=== PATIENT | female | born 1930 | race Caucasian/White ===

== ENCOUNTER → 2018-07-30 | Outpatient (CLI) | payer MEDICARE, OTHER ==
[2018-07-30 15:58] LABS: CULTURE INDICATED? YES; MICROSCOPIC INDICATED
[2018-07-30 15:58] LABS: ALBUMIN 3.4 g/dL (3.4-5.0); ANION GAP 8 mmol/L (5-15); BASOPHILS # (AUTO) 0.04 x10^3/uL (0-0.1); BASOPHILS % (AUTO) 0 % (0-1); CALCIUM 8.6 mg/dL (8.5-10.1); CHLORIDE 104 mmol/L (98-107); EOSINOPHILS # (AUTO) 0.14 x10^3/uL (0-0.4); EOSINOPHILS % (AUTO) 1 % (1-7); LYMPHOCYTES # (AUTO) 1.89 x10^3/uL (1-3.4); LYMPHOCYTES % (AUTO) 19 % (22-44); MD NO; MEAN CORPUSCULAR HEMOGLOBIN 30.5 pg (27.0-34.8); MEAN CORPUSCULAR HGB CONC 33.1 g/dL (32.4-35.8); MEAN CORPUSCULAR VOLUME 92.2 fL (80-100); MEAN PLATELET VOLUME 7.9 fL (7.4-10.4); MONOCYTES % (AUTO) 14 % (2-9); NEUTROPHILS # (AUTO) 6.33 x10^3/uL (1.8-6.8); NEUTROPHILS % (AUTO) 65 % (42-75); PLATELET COUNT 203 x10^3/uL (130-400); RED BLOOD COUNT 4.53 x10^6/uL (3.82-5.3); RED CELL DISTRIBUTION WIDTH 15.6 % (9.6-15.2)
[2018-07-30 16:01] LABS: ALANINE AMINOTRANSFERASE 19 U/L (12-78); ALKALINE PHOSPHATASE 85 U/L (45-117); BILIRUBIN,TOTAL 1.1 mg/dL (0.2-1.0); CREATININE 1.24 mg/dL (0.55-1.02); TOTAL PROTEIN 7.5 g/dL (6.4-8.2)
== END | disposition home or self-care (01) ==
LOC: CFH 13:48
PROVIDERS: ATTEND Family Medicine
DX: R10.2 Pelvic and perineal pain (principal)
CPT/HCPCS: 36415; 74176; 80053; 81001; 85025; 87086

== ENCOUNTER 2018-12-22 02:18 | Inpatient (IN) | payer MEDICARE, OTHER ==
[~2018-12-22] VITALS: Ht 162.6 cm; Wt 84.7 kg
--- NOTE | 2018-12-22 02:50 | NUR ---
PT PRESENTED WITH C/O LOW BACK PAIN, STATED "I THINK I'M CONSTIPATED." MONITORS APPLIED, SIDERAILS UP X2, CALL LIGHT WITHIN REACH. ERP AT BEDSIDE FOR EVAL
[2018-12-22] MEDS ORDERED: MORPHINE SULFATE 4 MG/ML, 1ML IVPush PRN (03:00)
[2018-12-22] MEDS ORDERED: ONDANSETRON 2MG/ML, 2ML IVPush ONE (03:00)
[2018-12-22] MEDS ORDERED: ONDANSETRON 2MG/ML, 2ML ONE (03:08)
[2018-12-22] MEDS ORDERED: MORPHINE SULFATE 4 MG/ML, 1ML ONE (03:09)
[2018-12-22 03:35] LABS: BASOPHILS # (AUTO) 0.02 x10^3/uL (0-0.1); BASOPHILS % (AUTO) 0 % (0-1); EOSINOPHILS # (AUTO) 0.14 x10^3/uL (0-0.4); EOSINOPHILS % (AUTO) 1 % (1-7); LYMPHOCYTES # (AUTO) 1.02 x10^3/uL (1-3.4); LYMPHOCYTES % (AUTO) 9 % (22-44); MD NO; MEAN CORPUSCULAR HEMOGLOBIN 30.9 pg (27.0-34.8); MEAN CORPUSCULAR HGB CONC 33.6 g/dL (32.4-35.8); MEAN PLATELET VOLUME 6.7 fL (7.4-10.4); MONOCYTES % (AUTO) 9 % (2-9); NEUTROPHILS # (AUTO) 8.79 x10^3/uL (1.8-6.8); NEUTROPHILS % (AUTO) 80 % (42-75); PLATELET COUNT 274 x10^3/uL (130-400); RED BLOOD COUNT 4.48 x10^6/uL (3.82-5.3); RED CELL DISTRIBUTION WIDTH 14.6 % (9.6-15.2)
[2018-12-22 03:46] LABS: ALANINE AMINOTRANSFERASE 16 U/L (12-78); ALBUMIN 3.7 g/dL (3.4-5.0); ANION GAP 9 mmol/L (5-15); CALCIUM 8.4 mg/dL (8.5-10.1); CHLORIDE 92 mmol/L (98-107); CREATININE 1.12 mg/dL (0.55-1.02)
[2018-12-22 03:51] LABS: ALKALINE PHOSPHATASE 109 U/L (45-117); BILIRUBIN,TOTAL 0.9 mg/dL (0.2-1.0); TOTAL PROTEIN 7.6 g/dL (6.4-8.2); TROPONIN I 0.043 ng/mL (0.000-0.045)
--- NOTE | 2018-12-22 04:30 | NUR ---
PT STRAIGHT CATH AND URINE SAMPLE TAKEN TO LAB. ASSISTED PT ONTO BEDPAN PER HER REQUEST.
[2018-12-22 04:42] LABS: CULTURE INDICATED? YES; MICROSCOPIC AUTO
[2018-12-22] MEDS ORDERED: CEFTRIAXONE PMX 1GM/50ML 50 ML IV ONE (05:00)
[2018-12-22] MEDS ORDERED: CEFTRIAXONE PMX 1GM/50ML 50 ML ONE (05:04)
--- NOTE | 2018-12-22 05:12 | NUR ---
PT RESTING ON GURNEY, MONITORS IN PLACE, IV ABX INFUSING, CALL LIGHT WITHIN REACH.
[2018-12-22] MEDS ORDERED: OMNIPAQUE 350 MG/ML, 100ML BOTTLE ONE (05:32)
[2018-12-22] MEDS ORDERED: ESCI20TA PO (05:35)
[2018-12-22] MEDS ORDERED: POTA99TA24 PO (05:35)
[2018-12-22] MEDS ORDERED: LORA10TA62 PO (05:35)
[2018-12-22] MEDS ORDERED: FURO-93 PO (05:35)
[2018-12-22] MEDS ORDERED: NITR0.4T28 SL (05:35)
[2018-12-22] MEDS ORDERED: LEVO112T4 PO (05:35)
[2018-12-22] MEDS ORDERED: ASPI-515 PO (05:35)
--- NOTE | 2018-12-22 05:48 | NUR ---
ASSISTED PT OFF OF BEDPAN, MONITORS IN PLACE, CALL LIGHT WITHIN REACH. AWAITING ROOM FOR TRANSFER
--- NOTE | 2018-12-22 05:58 | NUR ---
ATTEMTED TO CALL REPORT, ZEV RN TO CALL BACK.
--- NOTE | 2018-12-22 06:04 | NUR ---
ASSISTED PT ONTO BEDPAN, DENIES FURTHER NEEDS AT THIS TIME, CALL LIGHT WITHIN REACH
--- NOTE | 2018-12-22 06:10 | NUR ---
2ND CALL PLACED FOR REPORT, NOTIFIED RN WILL CALL ME RIGHT BACK
[2018-12-22 06:50] VITALS: BP 176/74
[2018-12-22] MEDS ORDERED: SODIUM CHLORIDE 0.9% 1,000 ML IV SCH (09:03)
[2018-12-22] MEDS ORDERED: hydrALAzine 20 MG/ML, 1ML IVPush PRN (09:30)
[2018-12-22] MEDS ORDERED: ACETAMINOPHEN 325 MG TABLET PO PRN (09:30)
[2018-12-22] MEDS ORDERED: NITROGLYCERIN 0.4 MG BOTTLE (25 TABS) SL PRN (11:00)
[2018-12-22] MEDS: POTASSIUM GLUCONATE PO SCH ×2 (11:30→21:00)
[2018-12-22] MEDS ORDERED: LIDODERM 5% PATCH TD PRN (12:00)
[2018-12-22] MEDS: FUROSEMIDE 20 MG TABLET PO SCH (12:32)
[2018-12-22] MEDS: LEVOTHYROXINE 112 MCG TABLET PO SCH (12:32)
[2018-12-22] MEDS: ASPIRIN 81 MG TABLET EC PO SCH (12:32)
[2018-12-22] MEDS: ESCITALOPRAM 10MG TABLET PO SCH (12:33)
[2018-12-22] MEDS: POLYETHYLENE GLYCOL 17 GM PACKET PO SCH (12:33)
[2018-12-22 16:25] VITALS: BP 126/75
[2018-12-22 20:07] VITALS: BP 119/65
[2018-12-23 03:00] VITALS: BP 143/63
[2018-12-23 06:23] LABS: BASOPHILS # (AUTO) 0.04 x10^3/uL (0-0.1); BASOPHILS % (AUTO) 1 % (0-1); EOSINOPHILS # (AUTO) 0.13 x10^3/uL (0-0.4); EOSINOPHILS % (AUTO) 2 % (1-7); LYMPHOCYTES # (AUTO) 1.21 x10^3/uL (1-3.4); LYMPHOCYTES % (AUTO) 15 % (22-44); MD NO; MEAN CORPUSCULAR HEMOGLOBIN 31.1 pg (27.0-34.8); MEAN CORPUSCULAR HGB CONC 33.5 g/dL (32.4-35.8); MEAN CORPUSCULAR VOLUME 92.9 fL (80-100); MEAN PLATELET VOLUME 6.6 fL (7.4-10.4); MONOCYTES # (AUTO) 0.92 x10^3/uL (0.2-0.8); MONOCYTES % (AUTO) 11 % (2-9); NEUTROPHILS # (AUTO) 5.92 x10^3/uL (1.8-6.8); NEUTROPHILS % (AUTO) 72 % (42-75); PLATELET COUNT 232 x10^3/uL (130-400); RED BLOOD COUNT 3.78 x10^6/uL (3.82-5.3); RED CELL DISTRIBUTION WIDTH 14.8 % (9.6-15.2)
[2018-12-23 06:31] LABS: ALBUMIN 2.7 g/dL (3.4-5.0); ANION GAP 6 mmol/L (5-15); CHLORIDE 97 mmol/L (98-107)
[2018-12-23 06:35] LABS: ALANINE AMINOTRANSFERASE 18 U/L (12-78); ALKALINE PHOSPHATASE 99 U/L (45-117); BILIRUBIN,TOTAL 0.5 mg/dL (0.2-1.0); CREATININE 1.12 mg/dL (0.55-1.02); TOTAL PROTEIN 6.4 g/dL (6.4-8.2)
[2018-12-23] MEDS: POLYETHYLENE GLYCOL 17 GM PACKET PO SCH (08:52)
[2018-12-23] MEDS: CEFTRIAXONE PMX 1GM/50ML 50 ML IV SCH (08:52)
[2018-12-23] MEDS: LEVOTHYROXINE 112 MCG TABLET PO SCH (08:53)
[2018-12-23] MEDS: FUROSEMIDE 20 MG TABLET PO SCH (08:53)
[2018-12-23] MEDS: ASPIRIN 81 MG TABLET EC PO SCH (08:53)
[2018-12-23] MEDS: ESCITALOPRAM 10MG TABLET PO SCH (08:53)
[2018-12-23] MEDS: POTASSIUM GLUCONATE PO SCH ×2 (09:00→21:00)
[2018-12-23 09:05] VITALS: BP 110/60
[2018-12-23 14:00] VITALS: BP 124/66
[2018-12-23] MEDS: LIDODERM 5% PATCH TD PRN (14:24)
[2018-12-23] MEDS: morphine SULFATE 10 MG/ML, 1ML IVPush PRN (15:37)
[2018-12-23] MEDS: ONDANSETRON 2MG/ML, 2ML IVPush PRN (15:42)
[2018-12-23 20:50] VITALS: BP 118/70
[2018-12-24 02:44] VITALS: BP 108/56
[2018-12-24 07:31] VITALS: BP 120/55
[2018-12-24] MEDS: ONDANSETRON 2MG/ML, 2ML IVPush PRN (07:35)
[2018-12-24] MEDS: morphine SULFATE 10 MG/ML, 1ML IVPush PRN ×2 (07:36→11:24)
[2018-12-24] MEDS: POTASSIUM GLUCONATE PO SCH ×2 (09:00→21:00)
[2018-12-24] MEDS: CEFTRIAXONE PMX 1GM/50ML 50 ML IV SCH (09:05)
[2018-12-24] MEDS ORDERED: BISACODYL 10 MG SUPP PR PRN (13:30)
[2018-12-24 13:35] VITALS: BP 115/58
[2018-12-24] MEDS: ASPIRIN 81 MG TABLET EC PO SCH (13:38)
[2018-12-24] MEDS: POLYETHYLENE GLYCOL 17 GM PACKET PO SCH (13:38)
[2018-12-24] MEDS: ESCITALOPRAM 10MG TABLET PO SCH (13:39)
[2018-12-24] MEDS: LEVOTHYROXINE 112 MCG TABLET PO SCH (13:39)
[2018-12-24] MEDS: FUROSEMIDE 20 MG TABLET PO SCH (13:40)
[2018-12-24] MEDS: LIDODERM 5% PATCH TD PRN (13:57)
[2018-12-24 20:04] VITALS: BP 106/51
[2018-12-25] MEDS: morphine SULFATE 10 MG/ML, 1ML IVPush PRN (01:39)
[2018-12-25 02:45] VITALS: BP 139/73
[2018-12-25] MEDS: LEVOTHYROXINE 112 MCG TABLET PO SCH ×2 (06:36→07:33)
[2018-12-25] MEDS ORDERED: ACET325T14 PO (08:14)
[2018-12-25] MEDS ORDERED: LACT1TAB13 PO (08:14)
[2018-12-25] MEDS ORDERED: LIDO700A20 TD (08:14)
[2018-12-25] MEDS ORDERED: POLY17PO5 PO (08:14)
[2018-12-25 08:19] VITALS: BP 131/67
[2018-12-25] MEDS: POTASSIUM GLUCONATE PO SCH (09:00)
[2018-12-25] MEDS: FUROSEMIDE 20 MG TABLET PO SCH (09:13)
[2018-12-25] MEDS: CEFTRIAXONE PMX 1GM/50ML 50 ML IV SCH (09:13)
[2018-12-25] MEDS: ASPIRIN 81 MG TABLET EC PO SCH (09:13)
[2018-12-25] MEDS: POLYETHYLENE GLYCOL 17 GM PACKET PO SCH (09:14)
[2018-12-25] MEDS: ESCITALOPRAM 10MG TABLET PO SCH (09:14)
[2018-12-25] MEDS ORDERED: LACTULOSE 20 GM/30 ML UDC PR ONE (10:30)
[2018-12-25] MEDS ORDERED: CEFD300C37 PO (13:04)
[2018-12-25] MEDS ORDERED: TRAM50TA2 PO (13:04)
[2018-12-25 14:03] VITALS: BP 137/76
== END 2018-12-25 17:31 | DRG 683 ==
LOC: ED 04:05 → EDIP 05:31 → 4NOR 06:50
PROVIDERS: ADMIT Family Medicine; ATTEND Internal Medicine
PROC: 0T9B70Z Drainage of Bladder with Drainage Device, Via Natural or Artificial Opening (ICD-10-PCS; principal; 2018-12-22)
DX: N17.0 Acute kidney failure with tubular necrosis (principal); E87.1 Hypo-osmolality and hyponatremia; M48.50XA Collapsed vertebra, not elsewhere classified, site unspecified, initial encounter for fracture; I50.32 Chronic diastolic (congestive) heart failure; I11.0 Hypertensive heart disease with heart failure; N10 Acute pyelonephritis; E03.9 Hypothyroidism, unspecified; Z66 Do not resuscitate; M16.10 Unilateral primary osteoarthritis, unspecified hip; K59.00 Constipation, unspecified; F32.9 Major depressive disorder, single episode, unspecified; Z90.89 Acquired absence of other organs; Z88.2 Allergy status to sulfonamides
CPT/HCPCS: 36415; 74177; 80053; 81001; 82962; 83605; 83690; 83735; 84100; 84443; 84484; 85025; 87040; 87077; 87086; 93005; 96365; 96375; G0378; J0696; J2405; Q9967; J2270